=== PATIENT | female | born 1950 | race Caucasian/White ===

== ENCOUNTER 2017-10-10 13:02 | Outpatient (CLI) | payer MEDICARE | END 2017-10-10 13:03 | disposition home or self-care (01) | LOC: BICMAMMO 13:02 | PROVIDERS: ATTEND Internal Medicine | DX: Z12.31 Encounter for screening mammogram for malignant neoplasm of breast (principal); Z80.3 Family history of malignant neoplasm of breast | CPT/HCPCS: 77063; 77067 ==

== ENCOUNTER 2017-11-05 15:58 | Outpatient (CLI) | payer MEDICARE | END 2017-11-05 15:59 | disposition home or self-care (01) | LOC: CTENTCT 15:58 | PROVIDERS: ATTEND Specialist | DX: J32.9 Chronic sinusitis, unspecified (principal) | CPT/HCPCS: 70486 ==

== ENCOUNTER 2017-11-13 09:32 | Day surgery (SDC) | payer MEDICARE ==
[2017-11-12 11:03] VITALS: BMI 25.8
[2017-11-13] MEDS ORDERED: Lidocaine 1% w/Epinephrine 1:200K 30 ML VIAL ONE (13:47)
[2017-11-13] MEDS ORDERED: Oxymetazoline HCl 0.05% ( 15 ML ) ONE ×2 (13:47→13:53)
[2017-11-13 13:48] LABS: Hemoglobin 14.5 g/dL (12.0-16.0)
[2017-11-13 14:08] LABS: Anion Gap 13 mmol/L (10-20); BUN (Urea Nitrogen) 17 mg/dL (9.8-20.1); Calc. Creatinine Clearance 78 mL/min (70-130); Calcium 9.8 mg/dL (7.8-10.44); Carbon Dioxide 24 mmol/L (23-31); Chloride 106 mmol/L (98-107); Estimated GFR-MDRD 69; Glucose 78 mg/dL (80-115); Potassium 3.7 mmol/L (3.5-5.1); Sodium 139 mmol/L (136-145)
[2017-11-13] MEDS ORDERED: Fentanyl 250 MCG/5 ML VIAL ONE (14:12)
[2017-11-13] MEDS ORDERED: methylPREDNISolone Acetate 40 mg/ml Vial ONE (14:13)
[2017-11-13] MEDS ORDERED: Fentanyl 100 MCG/2 ML VIAL ONE ×2 (16:40→16:53)
[2017-11-13] MEDS ORDERED: HYDROcodone/Acetaminophen 5/325 mg Tablet ONE (18:24)
--- NOTE | 2017-11-13 20:42 | OP ---
PREOPERATIVE DIAGNOSES: 1. Nasal polyposis. 2. Chronic sinusitis. 3. Reactive airways disease. 4. Hypertrophic inferior turbinates. POSTOPERATIVE DIAGNOSES: 1. Nasal polyposis. 2. Chronic sinusitis. 3. Reactive airways disease. 4. Hypertrophic inferior turbinates. PROCEDURES PERFORMED: 1. Stereotactic sinus image guidance. 2. Bilateral nasal endoscopy with frontal sinusotomy with removal of tissue. 3. Bilateral nasal endoscopy with total ethmoidectomy. 4. Bilateral nasal endoscopy with sphenoidotomy. 5. Bilateral nasal endoscopy with maxillary antrostomy. 6. Bilateral nasal endoscopy with submucosal resection inferior turbinates. FINDINGS: The patient had extensive hyperostotic bone with polyps everywhere and purulence encounter ed in the frontal sinus and sphenoid sinus. The previous maxillary sinus antrostomies were connected with the natural os to create one single unit bilaterally to address the recirculation phenomena. DESCRIPTION OF PROCEDURE: After consent was obtained, the patient was identified, brought to the ope rating room, and placed on the operating room table in the supine position. Consent was obtained, no tifying the patient of the possibility of additional infections, bleeding, brain injury, and eye/orbi marlys injury. The patient was placed on the operating room table, and general endotracheal anesthesia and intravenous access was obtained. The patient was then positioned, prepped and draped [facility]. Nasal preparation included trimming nasal vestibular hairs and spraying in topic al Afrin. We then placed Afrin topical solution on nasal pledgets and strategically located them int ranasally. The perinasal mucosa was injected with 1% lidocaine with 1:100,000 epinephrine in the sub mucoperichondrial plane of the septum, lateral nasal wall, and anterior to the uncinate. The patient was then prepped and draped in a sterile fashion and positioned for endoscopic sinus surgery. With the 0-degree endoscope, the patient underwent systematic nasal endoscopy. There were no suspici ous internasal masses or lesions identified. We then focused our attention to the osteomeatal comple x region under the middle turbinate. The uncinate was then identified and the extent of the uncinate was appreciated by out-fracturing the uncinate with the ball-tip probe. We then used the sickle blade to disarticulate the uncinate from the lateral nasal wall. This was then removed with straight biting and upbiting punches with the remaining shrouds of mucosa and bony septum removed with the micro-debr ider. The natural os of the maxillary sinus was then identified and enlarged with the maxillary punc hes and back biting forceps. The anterior face of the ethmoid bulla was entered and with the micro-debrider, dissection continued posteriorly to the ground lamella. The limits of dissection inc luded the insertion of the middle turbinate, medial orbital wall, and base of skull. We similarly id entified the frontal recess and removed shrouds of bone and debris in that region to obtain patency i nto the agger nasi region and frontal recess. We then entered the ground lamella and its anteroinfer ior aspect and proceeded posteriorly, opening the posterior ethmoid air-cell system. Again, the limi ts of dissection included the base of skull and medial orbital wall. The anterior face of the sphenoid was identified and entered in its extreme anteroinferior aspect. A sphenoid punch was then used to enlarge the sphenoidotomy and no injury to the optic nerve or graduate internship al carotid artery occurred. The inferior turbinates were visualized under endoscopic visualization and outfractured with the elev ator. The inferolateral edge of the inferior turbinate was then cauterized along its length with the suction cautery without difficulty. The inferior turbinates were visualized with a 0-degree endoscope and outfractured with a Addy eleva tor. The inferior medial aspect was cauterized with the electrocautery. Hemostasis was obtained . After adequate airway was established, we turned our attention to the contralateral side and used a s imilar procedure. Again, a Alber elevator was used to outfracture inferior turbinates under endoscop ic visualization. With a suction cautery, the free inferior medial aspect was cauterized under direc t visualization along the length of the inferior turbinate. After local anesthesia was infiltrated into the submucoperichondrial plane, a standard Trever incisi on was made with a #15 blade down to the level of the septal cartilage. The caudal elevator was used to elevate the mucoperichondrium from the underlying cartilage. We then proceeded beyond the bony c artilaginous junction and elevated the bony periosteum as well. Great attention was paid to the spur to prevent rent formation in the septal flap. A transcartilaginous incision was then made, while pre serving an adequate dorsal and caudal cartilaginous strut for tip support. The deformed cartilage wa s removed and disarticulated from the bony cartilaginous junction and maxillary crest. This was plac ed in saline and would later be crushed and returned to the mucoperichondrial envelope. We then elev ated the contralateral periosteum from the bony cartilaginous region and removed the deformed portion s of the bone and bony spurs. The cartilage was then crushed and placed back into the mucoperichondr ial envelope and the mucosa was re-approximated with a quilting stitch composed of rapidly absorbent gut suture. The [place] incision was also closed with interrupted gut suture. At the completion of the case, Mercado splints were placed and suture secured to the caudal septum. At this point, we then turned our attention to the contralateral side and proceeded with endoscopic s inus surgery. At the completion of the case, Rice keel splints were placed in the ethmoid cavities after the ethmoi dectomy. There were no complications. The patient tolerated the procedure well and was discharged t o the recovery room in stable condition prior to return to the preoperative Day Stay with [facility]. Prescriptions for pain medication and antibiotics were provided. The patient received intramuscular Depo-Medrol during the case.
--- NOTE | 2017-11-15 08:02 | EKG ---
Test Reason : PREOP Blood Pressure : / mmHG Vent. Rate : 064 BPM Atrial Rate : 064 BPM P-R Int : 180 ms QRS Dur : 088 ms QT Int : 434 ms P-R-T Axes : 039 008 052 degrees QTc Int : 447 ms Normal sinus rhythm Normal ECG No previous ECGs available Confirmed by DR. Nataliya DIAZ ([id number]) on 11/15/2017 8:02:21 AM Referred By: TURNER Confirmed By:DR. Nataliya DIAZ
== END 2017-11-13 19:28 | disposition home or self-care (01) ==
LOC: SDC 09:32
PROVIDERS: ATTEND Specialist
PROC: 8E09XBZ Computer Assisted Procedure of Head and Neck Region (ICD-10-PCS; principal; 2017-11-13)
PROC: 099R8ZZ Drainage of Left Maxillary Sinus, Via Natural or Artificial Opening Endoscopic (ICD-10-PCS; 2017-11-13)
PROC: 099W8ZZ Drainage of Right Sphenoid Sinus, Via Natural or Artificial Opening Endoscopic (ICD-10-PCS; 2017-11-13)
PROC: 099X8ZZ Drainage of Left Sphenoid Sinus, Via Natural or Artificial Opening Endoscopic (ICD-10-PCS; 2017-11-13)
PROC: 099Q8ZZ Drainage of Right Maxillary Sinus, Via Natural or Artificial Opening Endoscopic (ICD-10-PCS; 2017-11-13)
PROC: 09BT8ZZ Excision of Left Frontal Sinus, Via Natural or Artificial Opening Endoscopic (ICD-10-PCS; 2017-11-13)
PROC: 09BS8ZZ Excision of Right Frontal Sinus, Via Natural or Artificial Opening Endoscopic (ICD-10-PCS; 2017-11-13)
PROC: 09TL8ZZ Resection of Nasal Turbinate, Via Natural or Artificial Opening Endoscopic (ICD-10-PCS; 2017-11-13)
PROC: 09TV8ZZ Resection of Left Ethmoid Sinus, Via Natural or Artificial Opening Endoscopic (ICD-10-PCS; 2017-11-13)
PROC: 09TU8ZZ Resection of Right Ethmoid Sinus, Via Natural or Artificial Opening Endoscopic (ICD-10-PCS; 2017-11-13)
DX: J33.9 Nasal polyp, unspecified (principal); J32.9 Chronic sinusitis, unspecified; J34.3 Hypertrophy of nasal turbinates; J45.909 Unspecified asthma, uncomplicated; K21.9 Gastro-esophageal reflux disease without esophagitis; M06.9 Rheumatoid arthritis, unspecified; F41.9 Anxiety disorder, unspecified; Z79.899 Other long term (current) drug therapy; Z79.52 Long term (current) use of systemic steroids; Z88.0 Allergy status to penicillin; Z88.1 Allergy status to other antibiotic agents; Z88.8 Allergy status to other drugs, medicaments and biological substances
CPT/HCPCS: 36415; 80048; 85014; 85018; 93005; 93010; 96374; J1030; J3010

== ENCOUNTER 2018-07-06 09:58 | Outpatient (CLI) | payer MEDICARE ==
--- NOTE | 2018-07-06 12:07 | RAD ---
CHEST PA AND LATERAL: History: 68-year-old female with history of cough and congestion for three weeks. FINDINGS: Heart size is within normal limits. The lungs are clear. No pneumonia, edema, or pleural effusion. IMPRESSION: No acute intrathoracic disease. No evidence for pneumonia. Atherosclerosis of the aorta. POS: [facility]
== END 2018-07-06 09:59 | disposition home or self-care (01) ==
LOC: BICRAD 09:58
PROVIDERS: ATTEND Internal Medicine
DX: R05 Cough (principal); I70.0 Atherosclerosis of aorta
CPT/HCPCS: 71046

== ENCOUNTER 2018-12-14 10:10 | Outpatient (CLI) | payer MEDICARE ==
--- NOTE | 2018-12-14 11:20 | MRI ---
[facility] lumbar spine noncontrast: DATE: 12/14/2018 HISTORY: Left lumbar radiculopathy COMPARISON: None FINDINGS: Bilateral transpedicular screws at L4, L5 and S1. Associated metallic susceptibility artifact. 4.2 mm of retrolisthesis of L3 upon L4 and 5.1 mm anterolisthesis of L5 upon S1. Fusion of the L5-S1 disc space. Type II Modic changes at L5-S1.. No significant STIR hyperintensity to suggest vertebral body edema or ligamentous injury Symmetric signal intensity of the paraspinal muscles T2 hyperintensities in the left renal cortex, right hepatic lobe and right renal pelvis likely repres enting cystic lesions. Conus medullaris terminates at the mid L1 level T12-L1:Adequate disc hydration. No significant central canal stenosis or neural foraminal narrowing L1-2:Adequate disc hydration. No significant central canal stenosis or foraminal narrowing L2-3:Adequate disc hydration. No significant central canal stenosis or foraminal narrowing L3-4:Mild loss of disc space height. Generalized disc bulge without significant central canal stenosi s. Minimal encroachment upon both subarticular zones with partial obscuration of bilateral traversing L4 nerve roots. Moderate right and mild left foraminal narrowing. L4-5:Posterior laminectomy defect. No significant central canal stenosis. Neural foramina are patent L5-S1:Posterior laminectomy defect. No significant central canal stenosis. Neural foramina are patent . Perineural sleeve cyst along the left S1 nerve root. Additional perineural sleeve cyst on the right S 2 nerve root. IMPRESSION: 1. Lumbar fusion from L4 through S1. Limited evaluation due to lack of intravenous contrast administ ration. 2. Mass effect upon bilateral subarticular zones at L3-L4 with partial obscuration of bilateral jannie ersing L4 nerve roots. Moderate right and mild left foraminal narrowing at L3-L4.
== END 2018-12-14 10:11 | disposition home or self-care (01) ==
LOC: TBSIIMAG 10:10
PROVIDERS: ATTEND Neurological Surgery
DX: M54.16 Radiculopathy, lumbar region (principal); M48.061 Spinal stenosis, lumbar region without neurogenic claudication; Z98.1 Arthrodesis status
CPT/HCPCS: 72148

== ENCOUNTER 2019-01-19 10:18 | Outpatient (CLI) | payer MEDICARE ==
--- NOTE | 2019-01-19 12:43 | MRI ---
MR CERVICAL SPINE WITHOUT CONTRAST INDICATION: Chronic neck pain with bilateral hand cramps for many years TECHNIQUE: Multiplanar multisequence MR images were obtained of the cervical spine without contrast. COMPARISON: Prior MR the cervical spine dated November 30, 2013 FINDINGS: Posterior fossa: Within normal limits. Bone marrow signal intensity: Normal Spinal alignment: There is reversal the normal cervical lordosis which is stable. Craniocervical junction: Normal appearing. Prevertebral and perivertebral soft tissues: The prevertebral soft tissues appear within normal limit s. There is a small amount of mucosal thickening within the sphenoid sinus. Vertebral levels: C2-C3: There is a stable mild broad-based disc bulge at C2-C3. There is stable moderate to severe lef t and moderate right facet joint degenerative change. No appreciable central canal or neural foraminal narrowing is evident. C3-4: The severe left and moderate right facet joint degenerative changes stable. There is worsening right-sided uncovertebral hypertrophy inducing new mild right neural foraminal narrowing. There are stable mild left neural foraminal narrowing. C4-5: There is a worsening broad-based disc bulge at C4-5 causing mild ventral contact to the spinal cord. There is facet joint degenerative change and uncovertebral hypertrophy, greater on the right introducing stable severe right and mild left neural foraminal narrowing. C5-C6: There is a stable broad-based disc bulge with uncovertebral hypertrophy and facet joint degene rative change inducing stable moderate to severe bilateral neural foraminal narrowing. C6-C7:, There is a stable broad-based disc bulge with uncovertebral hypertrophy and facet joint degen erative changes inducing stable moderate right neural foraminal narrowing with mild central canal narrowing. C7-T1: There is been some interval resorption of the large right paracentral and foraminal disc protr usion. There is some residual mild/moderate right sided neural foraminal narrowing. IMPRESSION: 1. Worsening moderate multilevel spondylosis of the cervical spine. 2. There is worsening broad-based disc bulge at C4-5 causing mild ventral contact of the spinal cord without cord signal abnormality. 3. Some interval resorption of a large right paracentral and foraminal disc protrusion at C7-T1. Ther e is improvement in the right-sided neural foraminal narrowing. [id number] right-sided neural foraminal narrowing remains. 4. New mild right neural foraminal narrowing at C3-4. 5. Stable prominent multilevel neural foraminal narrowing as detailed above.
== END 2019-01-19 10:19 | disposition home or self-care (01) ==
LOC: SCSMRI 10:18
PROVIDERS: ATTEND Neurological Surgery
DX: M47.22 Other spondylosis with radiculopathy, cervical region (principal); M50.121 Cervical disc disorder at C4-C5 level with radiculopathy; S13.181A Dislocation of C7/T1 cervical vertebrae, initial encounter; M48.02 Spinal stenosis, cervical region; M48.03 Spinal stenosis, cervicothoracic region
CPT/HCPCS: 72141

== ENCOUNTER 2019-08-09 22:44 | Emergency (ER) | payer MEDICARE ==
[2019-08-09] MEDS ORDERED: Ondansetron ODT 4 MG TAB ONE (23:08)
[2019-08-09] MEDS ORDERED: Ondansetron PF 4 MG/2 ML Vial ONE (23:16)
[2019-08-09 23:38] LABS: ALT (SGPT) 28 U/L (8-55); AST (SGOT) 24 U/L (5-34); Albumin 4.7 g/dL (3.4-4.8); Alkaline Phosphatase 97 U/L (40-110); Anion Gap 17 mmol/L (10-20); BUN (Urea Nitrogen) 19 mg/dL (9.8-20.1); Bilirubin, Total 0.5 mg/dL (0.2-1.2); Calc. Creatinine Clearance 0 mL/min (70-130); Calcium 9.7 mg/dL (7.8-10.44); Carbon Dioxide 21 mmol/L (23-31); Chloride 106 mmol/L (98-107); Estimated GFR-MDRD 55; Glucose 148 mg/dL (80-115); Lipase 40 U/L (8-78); Magnesium 1.9 mg/dL (1.6-2.6); Potassium 3.9 mmol/L (3.5-5.1); Protein, Total 7.7 g/dL (6.0-8.3); Sodium 140 mmol/L (136-145)
[2019-08-10 00:07] LABS: Band 9 % (5-11); Eosinophils 2 % (0-10); Hemoglobin 14.2 g/dL (12.0-16.0); Lymphocytes 10 % (21-51); MDiff Complete? YES; Mean Corpuscular HGB CONC 33.3 g/dL (32.0-36.0); Mean Corpuscular Hemoglobin 28.3 pg (27.0-31.0); Mean Platelet Volume 8.9 fL (7.4-10.4); Monocytes 3 % (0-10); Neutrophil 76 % (42-75); Platelet Clumps SLIGHT; Platelet Count 170 thou/uL (130-400); Platelet Morphology Comment Appears Adequate; Red Blood Cell (RBC) Count 5.02 mill/uL (4.20-5.40); White Blood Cell (WBC) Count 15.2 thou/uL (4.8-10.8)
[2019-08-10] MEDS ORDERED: Ondansetron PF 4 MG/2 ML Vial ONE (00:39)
[2019-08-10 01:57] LABS: Bilirubin Negative (Negative); Blood, Urine Negative (Negative); Clarity Clear (Clear); Glucose, Urine (Dipstick) Normal (Negative); Leukocyte 25 Leu/uL (Negative); Nitrite Negative (Negative); Protein, Urine (Dipstick) Negative (Neg-Trace); RBC/HPF 0-3 HPF (0-3); Squamous Epithelial 0-3 HPF (0-3); Urobilinogen Normal mg/dL (Less than 2)
[2019-08-10 01:58] LABS: Bacteria/HPF 1+ HPF (None Seen)
[2019-08-10] MEDS ORDERED: Promethazine HCl 25 MG/ML VIAL ONE (02:19)
== END 2019-08-10 03:48 | disposition home or self-care (01) ==
LOC: ERS 22:44
DX: R11.2 Nausea with vomiting, unspecified (principal); R19.7 Diarrhea, unspecified; J45.909 Unspecified asthma, uncomplicated
CPT/HCPCS: 80053; 81003; 81015; 83690; 83735; 84484; 85025; 93005; 96361; 96365; 96372; 96375; 96376; J0500; J2405; J2550; Q0162

== ENCOUNTER 2020-04-11 10:03 | Outpatient (CLI) | payer MEDICARE ==
--- NOTE | 2020-04-11 10:28 | RAD ---
LUMBAR SPINE: Lateral neutral, flexion, and extension radiographs of lumbar spine obtained. Date: 04/11/2020 HISTORY: Intermittent back pain, prior back surgery. FINDINGS: Bilateral L4, L5, and S1 pedicle screws are present with vertically oriented interlocking rods. There is approximately 1.0-1.5 cm of anterolisthesis at the lumbosacral junction which is stable on the ne utral, flexion, and extension views. There is disc space narrowing with degenerative end plate change at L3-4. No acute fracture is noted. There is multilevel lower lumbar spine facet hypertrophic marquez e. IMPRESSION: Postoperative and degenerative change as detailed above. POS: [facility]
== END 2020-04-11 10:04 | disposition home or self-care (01) ==
LOC: SCSRAD 10:03
PROVIDERS: ATTEND Neurological Surgery
DX: M43.16 Spondylolisthesis, lumbar region (principal); M47.816 Spondylosis without myelopathy or radiculopathy, lumbar region; Z98.890 Other specified postprocedural states
CPT/HCPCS: 72100

== ENCOUNTER 2020-05-09 11:13 | Inpatient (IN) | payer MEDICARE, OTHER ==
[~2020-05-09 11:13] MED LIST: Iopamidol-370 76% 500 ML 1 ML ONE
[2020-05-09] MEDS ORDERED: Ondansetron PF 4 MG/2 ML Vial ONE (11:51)
[2020-05-09] MEDS ORDERED: Morphine 4 MG/ML VIAL ONE ×2 (11:51→15:47)
[2020-05-09 12:02] LABS: #Basophils 0.1 thou/uL (0.0-0.2); #Eosinphils 0.1 thou/uL (0.0-0.7); #Lymphocytes 1.3 thou/uL (1.20-3.40); #Monocytes 0.2 thou/uL (0.11-0.59); #Neutrophils 12.7 thou/uL (1.40-6.50); %Basophils 0.4 % (0.0-1.0); %Eosinophils 0.5 % (0.0-10.0); %Lymphocytes 8.9 % (21.0-51.0); %Monocytes 1.4 % (0.0-10.0); %Neutrophils 88.8 % (42.0-75.0); Hemoglobin 12.4 g/dL (12.0-16.0); Mean Corpuscular HGB CONC 32.4 g/dL (32.0-36.0); Mean Corpuscular Hemoglobin 29.2 pg (27.0-31.0); Mean Corpuscular Volume 90.2 fL (78.0-98.0); Mean Platelet Volume 7.2 fL (7.4-10.4); Platelet Count 337 thou/uL (130-400); RBC Distribution Width 12.3 % (11.5-14.5); Red Blood Cell (RBC) Count 4.22 mill/uL (4.20-5.40); White Blood Cell (WBC) Count 14.3 thou/uL (4.8-10.8)
[2020-05-09] MEDS ORDERED: Cefepime 2 GM VIAL ONE (12:17)
[2020-05-09 12:23] LABS: ALT (SGPT) 23 U/L (8-55); AST (SGOT) 19 U/L (5-34); Albumin 4.3 g/dL (3.4-4.8); Alkaline Phosphatase 72 U/L (40-110); Anion Gap 13 mmol/L (10-20); BUN (Urea Nitrogen) 22 mg/dL (9.8-20.1); Bilirubin, Total 0.4 mg/dL (0.2-1.2); Calc. Creatinine Clearance 0 mL/min (70-130); Calcium 9.3 mg/dL (7.8-10.44); Carbon Dioxide 26 mmol/L (23-31); Chloride 104 mmol/L (98-107); Estimated GFR-MDRD 45; Globulin 2.6 g/dL (2.4-3.5); Glucose 126 mg/dL (80-115); Potassium 3.9 mmol/L (3.5-5.1); Protein, Total 6.9 g/dL (6.0-8.3); Sodium 139 mmol/L (136-145)
--- NOTE | 2020-05-09 13:01 | CT ---
EXAM: CT ABDOMEN AND PELVIS HISTORY: Left lower quadrant pain COMPARISON: 05/23/2018 Procedure: Multiple contiguous axial images were obtained and a CT of the abdomen and pelvis with IV contrast. C oronal reformats were performed. FINDINGS: Lower Chest: No acute abnormality Vessels: Normal caliber aorta. No periaortic fat stranding Heart: Normal heart size. No significant pericardial fluid Abdomen: Portal vein:Patent Gallbladder: No calcified gallstones. Normal caliber wall. Liver: Stable hypodensities in the right hepatic lobe. No enhancing hepatic masses Pancreas: within normal limits. Spleen: within normal limits. Adrenals: within normal limits. Kidneys: Symmetric enhancement. No obstructive uropathy. Stable well-circumscribed hypodensity in the mid left renal cortex, too small to characterize measuring 0.6 cm. Peritoneum: No free air or significant fluid collection. Trace amount of fluid in both paracolic gutt ers. Bowel: Limited evaluation by the lack of oral contrast. Normal caliber small bowel loops. Normal ileo cecal junction. Normal caliber appendix. There is circumferential bowel wall thickening with pericolonic fat stranding involving the mid to distal descending colon and proximal sigmoid colon. Th ere are diverticula present in the residual sigmoid colon. No evidence of active inflammatory change. Anastomosis in the rectosigmoid region is identified. Mesentery and Retroperitoneum: No enlarged mesenteric or retroperitoneal lymph nodes. Abdominal Wall: Small umbilical hernia containing mesenteric fat Pelvis: Reproductive Organs: Reproductive organs are unremarkable. Pelvis: Surgically absent uterus. Bladder: within normal limits. Bones: Grade 1 anterolisthesis of L5 upon S1 with associated bilateral spondylolysis. Lumbar fusion f rom L4 through S1. Stable fusion of the lumbosacral junction. IMPRESSION: 1. Long segment mucosal thickening and pericolonic fat stranding involving the left hemicolon. An inf ectious or inflammatory or ischemic process is favored. 2. Minimal diverticulosis, without definite diverticulitis. There are 2 small diverticula present moreno ng the distal left hemicolon. However, the extent of inflammatory disease favors the a forementioned differential, rather than diverticulitis.
[2020-05-09] MEDS ORDERED: metroNIDAZOLE 500 MG/100 ML BAG ONE (13:08)
--- NOTE | 2020-05-09 16:07 | PDOC.HHP ---
Hospitalist HPI - History of Present Illness Abdominal pain History of Present Illness: Ms. Marcano is a 69-year-old female with a past medical history of eosinophilic asthma, hypertension, tachycardia - status post ablation 2 years ago, diverticulitis - status post sigmoid colon resection 9 years ago who presents with acute left lower quadrant abdominal pain. Patient reports that over the past week she has had mild abdominal pain and developed nonbloody diarrhea the evening prior to admission. This morning she was getting her hair done, felt worsening left lower quadrant pain and felt as though she was about to pass out. She then presented to the ER. Patient denies nausea, vomiting. Denies fever but reports chills over the past few days. Denies sick contacts, denies any recurrent bouts of diverticulitis since her resection. Denies chest pain, shortness of breath, palpitations. Of note patient had a recent left radial nerve entrapment surgery on April 25 with sutures still in place patient reports that she was post to remove the sutures at an appointment on 05/11/2020. She also reports that she was on bactrim post-op. ED Course: In the ED patient's initial vital signs were BP 82/40, HR 72, RR 18, 97.9, 100% on room air. Work-up included EKG which showed normal sinus rhythm with no ischemic changes troponin of 0.012, elevated white blood cell count to 14.3, stable H&H of 12.4/38.1, BUN/CR ratio of 22/1.18. Lactic acid elevated to 3.0. CT of the abdomen revealed long segment mucosal thickening and pericolonic fat stranding involving the left hemicolon with an inflammatory or ischemic process favored CT scan also showed diverticulosis without definite diverticulitis. Patient was started on Flagyl and cefepime IV and received IV fluids. Hospitalist ROS - Review of Systems Constitutional: reports: chills. denies: fever, sweats, weakness, malaise, other Eyes: denies: vision change ENT: denies: ear pain, nose congestion, throat pain Respiratory: denies: cough, dry, shortness of breath, hemoptysis, SOB with excertion, pleuritic pain, sputum, wheezing, other Cardiovascular: denies: chest pain, palpitations, orthopnea, paroxysmal noc. dyspnea, edema, light headedness, other Gastrointestinal: reports: abdominal pain, diarrhea. denies: nausea, vomiting, constipation, melena, hematochezia, other Genitourinary: denies: dysuria, frequency, incontinence, hematuria, retention, other Musculoskeletal: denies: neck pain, shoulder pain, arm pain, back pain, hand pain, leg pain, foot pain, other Skin: denies: rash, lesions, blanca Neurological: denies: weakness, numbness - Medication Medications: Active Medications Generic Name Dose Route Start Last Admin Trade Name Freq PRN Reason Stop Dose Admin Acetaminophen 650 mg 05/09/20 16:29 Tylenol PO Q4H PRN Headache/Fever/Mild Pain (1-3) Albuterol/Ipratropium 3 ml 05/09/20 18:30 05/10/20 07:29 Duoneb NEB 3 ml [id number] ABBE Administration Enoxaparin Sodium 40 mg 05/10/20 09:00 Lovenox SC 0900 ABBE Sodium Chloride 1,000 mls @ 100 mls/hr 05/09/20 16:30 05/10/20 05:06 Normal Saline 0.9% IV 1,000 mls .Q10H ABBE Administration Cefepime HCl 2 gm/ Sodium 100 mls @ 200 mls/hr 05/09/20 23:59 05/10/20 00:00 Chloride IVPB 100 mls 1200,2359 ABBE Administration Metronidazole 500 mg/ Device 100 mls @ 100 mls/hr 05/09/20 22:00 05/10/20 05: 04 IVPB 100 mls Q8HR ABBE Administration Mometasone Furoate/Formoterol Fumar 1 puff 05/09/20 18:30 05/10/20 07:29 Dulera 200 Mcg/5 Mcg Inhaler INH 1 puff BID-RT ABBE Administration Ondansetron HCl 4 mg 05/09/20 17:00 Zofran IVP Q6H PRN Nausea/Vomiting Sodium Chloride 10 ml 05/09/20 16:29 Flush - Normal Saline IVF PRN PRN Saline Flush Hospitalist History - Past Medical History Cardiac: reports: Other (Status post ablation 2 years ago, SVT) Pulmonary: reports: asthma, hypertension 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: Peripheral 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) Gastrointestinal: reports: Diverticulosis (Diverticulitis status post colonic resection) Heme/Onc: reports: no pertinent history Hepatobiliary: reports: no pertinent history Psych: reports: Anxiety Musculoskeletal: reports: no pertinent history Rheumatologic: reports: no pertinent history Infectious Disease: reports: no pertinent history ENT: reports: no pertinent history Renal/: reports: no pertinent history Endocrine: reports: no pertinent history - Past Surgical History Other Surgical History: Sigmoid colon resection 2010, left radial nerve surgical release on April 25, cardiac ablation for question SVT performed 2 years ago - Family History Family History: reports: cancer (Father with lung cancer daughter with breast cancer Sister with breast cancer) - Social History Smoking Status: Never smoker Alcohol: reports: Occassional (Glass of wine 1-3 times per week) Drugs: reports: none Living Situation: With Family Activity level: independent ambulation - Exam General Appearance: NAD, awake alert Eye: PERRL, anicteric sclera ENT: normocephalic atraumatic, no oropharyngeal lesions, moist mucosa Neck: supple, symmetric, no JVD, no thyromegaly, no lymphadenopathy, no carotid bruit Heart: RRR, no murmur, no gallops, no rubs, normal peripheral pulses Respiratory: CTAB, no wheezes, no rales, no ronchi, normal chest expansion, no tachypnea, normal percussion Gastrointestinal: soft, non-distended, no palpable masses, no hepatomegaly, no splenomegaly, no bruit, tender to palpation, diminished bowl sounds Extremities: no cyanosis, no clubbing, no edema Extremities - other findings: Sutures and dressing in place to left elbow Skin: normal turgor, no lesions, no rashes Neurological: cranial nerve grossly intact, normal sensation to touch, no weakness, no focal deficits, no new deficit Musculoskeletal: normal tone, normal strength, no muscle wasting Psychiatric: normal affect, normal behavior, A&O x 3 Hospitalist Results - Labs Result Diagrams: 05/10/20 05:25 05/10/20 05:25 Lab results: WBC 14.3 thou/uL (4.8-10.8) H 05/09/20 11:40 Hgb 12.4 g/dL (12.0-16.0) 05/09/20 11:40 Hct 38.1 % (36.0-47.0) 05/09/20 11:40 MCV 90.2 fL (78.0-98.0) 05/09/20 11:40 Plt Count 337 thou/uL (130-400) 05/09/20 11:40 Neutrophils % 88.8 % (42.0-75.0) H 05/09/20 11:40 Sodium 139 mmol/L (136-145) 05/09/20 11:40 Potassium 3.9 mmol/L (3.5-5.1) 05/09/20 11:40 Chloride 104 mmol/L (98-107) 05/09/20 11:40 Carbon Dioxide 26 mmol/L (23-31) 05/09/20 11:40 BUN 22 mg/dL (9.8-20.1) H 05/09/20 11:40 Creatinine 1.18 mg/dL (0.6-1.1) H 05/09/20 11:40 Glucose 126 mg/dL (80-115) H 05/09/20 11:40 Lactic Acid 3.0 mmol/L (0.5-2.2) H 05/09/20 14:02 Calcium 9.3 mg/dL (7.8-10.44) 05/09/20 11:40 Total Bilirubin 0.4 mg/dL (0.2-1.2) 05/09/20 11:40 AST 19 U/L (5-34) 05/09/20 11:40 ALT 23 U/L (8-55) 05/09/20 11:40 Alkaline Phosphatase 72 U/L (40-110) 05/09/20 11:40 Troponin I 0.012 ng/mL (< 0.028) 05/09/20 11:40 Serum Total Protein 6.9 g/dL (6.0-8.3) 05/09/20 11:40 Albumin 4.3 g/dL (3.4-4.8) 05/09/20 11:40 - EKG Interpretation EKG: Normal sinus rhythm no ischemic changes Hospitalist H&P A/P - Problem (1) Colitis Code(s): K52.9 - NONINFECTIVE GASTROENTERITIS AND COLITIS, UNSPECIFIED Status : Acute (2) Acute left lower quadrant pain Code(s): R10.32 - LEFT LOWER QUADRANT PAIN Status: Acute (3) Eosinophilic asthma Code(s): J82 - PULMONARY EOSINOPHILIA, NOT ELSEWHERE CLASSIFIED Status: Acute (4) Hypertension Code(s): I10 - ESSENTIAL (PRIMARY) HYPERTENSION Status: Acute (5) S/P decompression of ulnar nerve at elbow Code(s): Z98.890 - OTHER SPECIFIED POSTPROCEDURAL STATES Status: Acute - Plan Plan: Assessment: 69-year-old female with past medical history of diverticulitis status post colonic resection in 2010, hypertension, eosinophilic asthma, ulnar nerve entrapment, presented to the ED on 05/09/2020 with acute lower quadrant abdominal pain found to have evidence of colitis on CT scan. Colitis: Presented with left lower quadrant abdominal pain associated with diarrhea found to have elevated white blood cell count to 14.3, elevated lactic acid 3.0 , and CT abdomen pelvis showing long segment mucosal thickening and pericolonic fat stranding of the left hemicolon as well as minimal diverticulosis without definite diverticulitis. Patient was started on Flagyl and cefepime IV in the ED as well as received IV fluids. Plan: -Continue IV Flagyl, cefepime -Continue IV fluids -Clear liquid diet -Continue to trend CBC, BMP, lactic acid Please note patient has multiple allergies including anaphylactic reaction to penicillins, rash reactions to ciprofloxacin, levofloxacin, etc. BRIANNA: Patient with mild BRIANNA with BUN/CR ratio of 22/1.18. Likely prerenal secondary to dehydration we will give IV fluids and monitor. Plan: -Trend BMP -IV fluids Eosinophilic Asthma: History of eosinophilic asthma on standing Symbicort Xopenex, and Nucala which she receives as a monthly injection. Plan: -Continue Symbicort twice daily -Duo nebs as needed Hypertension: Continue home losartan as blood pressure allows DVT prophylaxis with Lovenox All imaging reviewed by me Case discussed with attending physician Dr. De Anda.
[2020-05-09] MEDS: Sodium Chloride 0.9% 1,000 ML IV SCH (17:47)
[2020-05-09 18:33] LABS: Lactic Acid 3.2 mmol/L (0.5-2.2)
[2020-05-09] MEDS: Mometasone 200 MCG/Formoterol 5 MCG 120 PUFF INHALER INH SCH (18:35)
[2020-05-09] MEDS ORDERED: Morphine 2 MG/ML VIAL SLOW IVP SCH (20:30)
--- NOTE | 2020-05-09 20:53 | RAD ---
RADIOGRAPH CHEST 1 VIEW: DATE: 05/09/2020 HISTORY: 69-year-old female with chest pain. FINDINGS: The thoracic aorta is tortuous and ectatic. There is no evidence of air space density, pneumothorax, or pulmonary edema. The lateral costophrenic angles are sharp. There is no cardiomegaly. IMPRESSION: 1. No acute pulmonary findings. 2. Ectasia of thoracic aorta. campos [] POS: [facility]
[2020-05-09] MEDS: metroNIDAZOLE 500 MG in Premix Bag 1 BAG IVPB SCH (21:07)
[2020-05-10] MEDS ORDERED: Morphine 2 MG/ML VIAL SLOW IVP SCH (00:30)
[2020-05-10] MEDS: metroNIDAZOLE 500 MG in Premix Bag 1 BAG IVPB SCH ×3 (05:04→21:53)
[2020-05-10] MEDS: Sodium Chloride 0.9% 1,000 ML IV SCH ×2 (05:06→17:58)
[2020-05-10 05:57] LABS: #Basophils 0.1 thou/uL (0.0-0.2); #Lymphocytes 1.9 thou/uL (1.20-3.40); #Monocytes 0.6 thou/uL (0.11-0.59); #Neutrophils 11.9 thou/uL (1.40-6.50); %Basophils 0.4 % (0.0-1.0); %Eosinophils 0.2 % (0.0-10.0); %Monocytes 4.4 % (0.0-10.0); Hemoglobin 11.2 g/dL (12.0-16.0); Mean Corpuscular HGB CONC 31.9 g/dL (32.0-36.0); Mean Corpuscular Hemoglobin 29.1 pg (27.0-31.0); Mean Platelet Volume 7.5 fL (7.4-10.4); Platelet Count 312 thou/uL (130-400); RBC Distribution Width 12.6 % (11.5-14.5); Red Blood Cell (RBC) Count 3.86 mill/uL (4.20-5.40); White Blood Cell (WBC) Count 14.5 thou/uL (4.8-10.8)
[2020-05-10] MEDS ORDERED: Morphine 4 MG/ML VIAL SLOW IVP SCH (06:00)
[2020-05-10] MEDS ORDERED: Sodium Chloride 0.9% 250 ML IV SCH (06:00)
[2020-05-10 06:21] LABS: Anion Gap 14 mmol/L (10-20); BUN (Urea Nitrogen) 12 mg/dL (9.8-20.1); Calc. Creatinine Clearance 71 mL/min (70-130); Calcium 7.9 mg/dL (7.8-10.44); Carbon Dioxide 19 mmol/L (23-31); Chloride 108 mmol/L (98-107); Estimated GFR-MDRD 57; Glucose 105 mg/dL (80-115); Potassium 3.6 mmol/L (3.5-5.1); Sodium 137 mmol/L (136-145)
[2020-05-10] MEDS: Mometasone 200 MCG/Formoterol 5 MCG 120 PUFF INHALER INH SCH ×2 (07:29→18:28)
[2020-05-10] MEDS: Morphine 4 MG/ML VIAL SLOW IVP PRN ×2 (09:15→17:15)
[2020-05-10] MEDS: Enoxaparin Sodium 40 MG/0.4 ML SYRINGE SC SCH ×2 (09:16→09:17)
--- NOTE | 2020-05-10 10:46 | PDOC.HOSPP ---
- Subjective Encounter Date: 05/10/20 Encounter Time: 10:40 Subjective: f/u for L-sided colitis presumed infectious on Cefepime/Flagyl. States still with LLQ abd pain/cramping. No diarrhea or emesis. Receiving Morphine IV for pain control. - Objective Vital Signs & Weight: Vital Signs (12 hours) Temp Pulse Resp BP Pulse Ox 05/10/20 10:34 85 16 95 05/10/20 08:00 98.6 F 83 18 107/64 95 05/10/20 07:29 63 16 98 05/10/20 04:36 98.6 F 99 16 94/58 L 93 L 05/09/20 23:15 98.8 F 86 16 107/66 94 L Weight Weight 179 lb 14.285 oz I&O: 05/09/20 05/10/20 05/11/20 06:59 06:59 06:59 Intake Total 1700 Balance 1700 Result Diagrams: 05/10/20 05:25 05/10/20 05:25 Additional Labs: Microbiology 05/10/20 05:15 Stool C. difficile GDH Antigen & Toxins - Final Laboratory Tests 05/09/20 05/09/20 05/09/20 11:40 11:40 14:02 WBC 14.3 H Neutrophils % 88.8 H BUN 22 H Creatinine 1.18 H Lactic Acid 3.0 H Lipase 05/09/20 05/09/20 18:03 18:03 WBC Neutrophils % BUN Creatinine Lactic Acid 3.2 H Lipase 26 Hospitalist ROS - Medication Medications: Active Medications Generic Name Dose Route Start Last Admin Trade Name Freq PRN Reason Stop Dose Admin Albuterol/Ipratropium 3 ml 05/09/20 18:30 05/10/20 10:34 Duoneb NEB 3 ml [id number] ABBE Administration Enoxaparin Sodium 40 mg 05/10/20 09:00 05/10/20 09:17 Lovenox SC Not Given 0900 ABBE Sodium Chloride 1,000 mls @ 100 mls/hr 05/09/20 16:30 05/10/20 05:06 Normal Saline 0.9% IV 1,000 mls .Q10H ABBE Administration Cefepime HCl 2 gm/ Sodium 100 mls @ 200 mls/hr 05/09/20 23:59 05/10/20 00:00 Chloride IVPB 100 mls 1200,2359 ABBE Administration Metronidazole 500 mg/ Device 100 mls @ 100 mls/hr 05/09/20 22:00 05/10/20 05: 04 IVPB 100 mls Q8HR ABBE Administration Mometasone Furoate/Formoterol Fumar 1 puff 05/09/20 18:30 05/10/20 07:29 Dulera 200 Mcg/5 Mcg Inhaler INH 1 puff BID-RT ABBE Administration Morphine Sulfate 4 mg 05/10/20 08:31 05/10/20 09:15 Morphine SLOW IVP 4 mg Q4H PRN Administration Moderate to Severe Pain (6-10) - Exam General Appearance: NAD, awake alert Eye: PERRL, anicteric sclera ENT: normocephalic atraumatic, no oropharyngeal lesions Neck: supple, symmetric, no JVD, no thyromegaly, no lymphadenopathy Heart: RRR, no murmur, no gallops, no rubs, normal peripheral pulses Heart - other findings: S1, S2 Respiratory: CTAB, no wheezes, no rales, no ronchi, normal chest expansion, no tachypnea Gastrointestinal: soft, non-distended, normal bowel sounds, no palpable masses Gastrointestinal - other findings: mild TTP in LLQ Extremities: no cyanosis, no clubbing, no edema Skin: normal turgor, no lesions Neurological: cranial nerve grossly intact, no new deficit Musculoskeletal: normal tone, normal strength, no muscle wasting Psychiatric: normal affect, A&O x 3 Hosp A/P (1) Acute colitis Code(s): K52.9 - NONINFECTIVE GASTROENTERITIS AND COLITIS, UNSPECIFIED Status : Acute Plan: Presumed infectious, continue Cefepime/Flagyl, continue IV abx, IVF's (2) Acute left lower quadrant pain Code(s): R10.32 - LEFT LOWER QUADRANT PAIN Status: Acute Plan: Continue mgmt as outlined in #1, Morphine Sulfate IV PRN (3) BRIANNA (acute kidney injury) Code(s): N17.9 - ACUTE KIDNEY FAILURE, UNSPECIFIED Status: Acute Plan: Improved, continue IVF's, avoid nephrotoxic meds and limit contrast (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
[2020-05-10 11:59] VITALS: BMI 28.1
[2020-05-10] MEDS: Cefepime 2 GM in Sodium Chloride 0.9% 100 ML IVPB SCH ×2 (12:20)
[2020-05-10] MEDS: Ondansetron PF 4 MG/2 ML Vial IVP PRN (12:23)
[2020-05-10 12:30] LABS: SARS-CoV-2 MS2 Positive; SARS-CoV-2 N Gene Negative; SARS-CoV-2 S Gene Negative; SARS-CoV-2 by NAA Not Detected (NotDetected); SARS-CoV-2 orf1ab Negative
[2020-05-10] MEDS: Ketorolac Tromethamine 30 MG/ML VIAL IVP PRN ×2 (14:04→20:04)
[2020-05-11] MEDS: Morphine 4 MG/ML VIAL SLOW IVP PRN ×2 (00:17→04:55)
[2020-05-11] MEDS: Cefepime 2 GM in Sodium Chloride 0.9% 100 ML IVPB SCH ×3 (00:18→23:10)
[2020-05-11] MEDS: Ketorolac Tromethamine 30 MG/ML VIAL IVP PRN ×4 (03:24→23:15)
[2020-05-11] MEDS: metroNIDAZOLE 500 MG in Premix Bag 1 BAG IVPB SCH ×3 (04:56→21:32)
[2020-05-11] MEDS: Acetaminophen 325 MG TAB PO PRN ×3 (05:02→23:15)
[2020-05-11 05:26] LABS: #Lymphocytes 1.4 thou/uL (1.20-3.40); #Monocytes 0.5 thou/uL (0.11-0.59); #Neutrophils 4.3 thou/uL (1.40-6.50); %Basophils 0.6 % (0.0-1.0); %Eosinophils 0.6 % (0.0-10.0); %Lymphocytes 22.5 % (21.0-51.0); %Monocytes 7.3 % (0.0-10.0); Hemoglobin 9.5 g/dL (12.0-16.0); Mean Corpuscular Hemoglobin 29.9 pg (27.0-31.0); Mean Corpuscular Volume 90.6 fL (78.0-98.0); Mean Platelet Volume 7.3 fL (7.4-10.4); Platelet Count 247 thou/uL (130-400); RBC Distribution Width 12.5 % (11.5-14.5); Red Blood Cell (RBC) Count 3.16 mill/uL (4.20-5.40); White Blood Cell (WBC) Count 6.2 thou/uL (4.8-10.8)
[2020-05-11 05:46] LABS: Anion Gap 11 mmol/L (10-20); BUN (Urea Nitrogen) 9 mg/dL (9.8-20.1); Calc. Creatinine Clearance 80 mL/min (70-130); Calcium 7.5 mg/dL (7.8-10.44); Carbon Dioxide 20 mmol/L (23-31); Chloride 111 mmol/L (98-107); Estimated GFR-MDRD 65; Glucose 100 mg/dL (80-115); Potassium 3.3 mmol/L (3.5-5.1); Sodium 139 mmol/L (136-145)
[2020-05-11] MEDS: Mometasone 200 MCG/Formoterol 5 MCG 120 PUFF INHALER INH SCH ×2 (06:54→18:53)
[2020-05-11] MEDS: Ondansetron PF 4 MG/2 ML Vial IVP PRN ×2 (09:39→13:47)
[2020-05-11] MEDS: Enoxaparin Sodium 40 MG/0.4 ML SYRINGE SC SCH (09:39)
[2020-05-11] MEDS: Sodium Chloride 0.9% 1,000 ML IV SCH ×2 (10:09→13:51)
--- NOTE | 2020-05-11 11:31 | PDOC.FMACP ---
Advance Care Planning - Problem (1) Palliative care encounter Status: Acute Code(s): Z51.5 - ENCOUNTER FOR PALLIATIVE CARE (2) BRIANNA (acute kidney injury) Status: Acute Code(s): N17.9 - ACUTE KIDNEY FAILURE, UNSPECIFIED (3) Acute colitis Status: Acute Code(s): K52.9 - NONINFECTIVE GASTROENTERITIS AND COLITIS, UNSPECIFIED (4) Colitis Status: Acute Code(s): K52.9 - NONINFECTIVE GASTROENTERITIS AND COLITIS, UNSPECIFIED (5) Hypertension Status: Chronic Code(s): I10 - ESSENTIAL (PRIMARY) HYPERTENSION Qualifiers: Hypertension type: essential hypertension Qualified Code(s): I10 - Essential (primary) hypertension - Note Participants: patient, palliative care Summary: Palliative Care revisited Advanced Care Planning, opportunity to decline. The diagnosis, prognosis and goals of care were discussed. Appropriate forms and documentation to accomplish the goals of care were discussed. All questions were answered. Reviewed Directives in medical record and patient confirmed as correct and remain her wishes. The Palliative Care Team will assist with completion of any outstanding forms as identified. Please also refer to Palliative Care notes in note section. Time Spent (mins): 15
[2020-05-11] MEDS ORDERED: Ondansetron PF 4 MG/2 ML Vial IVP PRN (15:06)
[2020-05-11] MEDS: Mag-Al 1200 mg/1200 mg/30 ML UDCUP PO PRN ×2 (15:28→21:31)
--- NOTE | 2020-05-11 16:13 | PDOC.HOSPP ---
- Subjective Encounter Date: 05/11/20 Encounter Time: 16:10 Subjective: f/u for L-sided colitis presumed infectious on Cefepime/Flagyl. Overall improved with residual cramps and occasional nausea. - Objective Vital Signs & Weight: Vital Signs (12 hours) Temp Pulse Resp BP Pulse Ox 05/11/20 07:45 98.4 F 75 18 108/61 97 05/11/20 06:52 92 14 96 05/11/20 05:02 98.4 F 79 17 104/66 95 Weight Admit Weight 180 lb 4.8 oz Weight 179 lb 14.285 oz I&O: 05/10/20 05/11/20 05/12/20 06:59 06:59 06:59 Intake Total 1700 3380 Balance 1700 3380 Result Diagrams: 05/11/20 05:15 05/11/20 05:15 Additional Labs: Microbiology 05/10/20 05:15 Stool C. difficile GDH Antigen & Toxins - Final Laboratory Tests 05/09/20 05/09/20 05/09/20 11:40 11:40 14:02 WBC 14.3 H Neutrophils % 88.8 H BUN 22 H Creatinine 1.18 H Lactic Acid 3.0 H Lipase 05/09/20 05/09/20 18:03 18:03 WBC Neutrophils % BUN Creatinine Lactic Acid 3.2 H Lipase 26 Hospitalist ROS - Medication Medications: Active Medications Generic Name Dose Route Start Last Admin Trade Name Freq PRN Reason Stop Dose Admin Acetaminophen 650 mg 05/09/20 16:29 05/11/20 11:53 Tylenol PO 650 mg Q4H PRN Administration Headache/Fever/Mild Pain (1-3) Al Hydroxide/Mg Hydroxide 30 ml 05/11/20 15:07 05/11/20 15:28 Maalox PO 30 ml Q4H PRN Administration Heartburn or Indigestion Enoxaparin Sodium 40 mg 05/10/20 09:00 05/11/20 09:39 Lovenox SC 40 mg 0900 ABBE Administration Sodium Chloride 1,000 mls @ 100 mls/hr 05/09/20 16:30 05/11/20 13:51 Normal Saline 0.9% IV Not Given .Q10H ABBE Cefepime HCl 2 gm/ Sodium 100 mls @ 200 mls/hr 05/09/20 23:59 05/11/20 11:53 Chloride IVPB 100 mls 1200,2359 ABBE Administration Metronidazole 500 mg/ Device 100 mls @ 100 mls/hr 05/09/20 22:00 05/11/20 13: 49 IVPB 100 mls Q8HR ABBE Administration Ketorolac Tromethamine 30 mg 05/10/20 13:46 05/11/20 15:34 Toradol IVP 05/15/20 13:47 30 mg Q6H PRN Administration Moderate Pain (4-6) Mometasone Furoate/Formoterol Fumar 1 puff 05/09/20 18:30 05/11/20 06:54 Dulera 200 Mcg/5 Mcg Inhaler INH 1 puff BID-RT ABBE Administration Morphine Sulfate 4 mg 05/10/20 08:31 05/11/20 04:55 Morphine SLOW IVP 4 mg Q4H PRN Administration Moderate to Severe Pain (6-10) - Exam General Appearance: NAD, awake alert Eye: PERRL, anicteric sclera ENT: normocephalic atraumatic, no oropharyngeal lesions Neck: supple, symmetric, no JVD, no thyromegaly, no lymphadenopathy Heart: RRR, no gallops, no rubs, normal peripheral pulses Heart - other findings: S1, S2 Respiratory: CTAB, no wheezes, no rales, no ronchi, normal chest expansion, no tachypnea Gastrointestinal: soft, non-distended, normal bowel sounds, no palpable masses Gastrointestinal - other findings: minimal TTP LLQ Extremities: no cyanosis, no clubbing Skin: normal turgor, no lesions Neurological: cranial nerve grossly intact, no new deficit Musculoskeletal: normal tone, normal strength, no muscle wasting Psychiatric: normal affect, A&O x 3 Hosp A/P (1) Acute colitis Code(s): K52.9 - NONINFECTIVE GASTROENTERITIS AND COLITIS, UNSPECIFIED Status : Acute Plan: Continue Cefepime/Flagyl another 24h then de-escalate coverage (2) Acute left lower quadrant pain Code(s): R10.32 - LEFT LOWER QUADRANT PAIN Status: Acute (3) BRIANNA (acute kidney injury) Code(s): N17.9 - ACUTE KIDNEY FAILURE, UNSPECIFIED Status: Acute Plan: Resolving, saline lock IVF (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
[2020-05-12] MEDS ORDERED: Promethazine HCl 25 MG/ML VIAL IM/IV SCH (00:45)
[2020-05-12] MEDS: Mag-Al 1200 mg/1200 mg/30 ML UDCUP PO PRN (01:01)
[2020-05-12] MEDS: Morphine 4 MG/ML VIAL SLOW IVP PRN (01:15)
[2020-05-12] MEDS: metroNIDAZOLE 500 MG in Premix Bag 1 BAG IVPB SCH (05:59)
[2020-05-12 06:26] LABS: #Eosinphils 0.1 thou/uL (0.0-0.7); #Lymphocytes 1.3 thou/uL (1.20-3.40); #Monocytes 0.3 thou/uL (0.11-0.59); #Neutrophils 4.1 thou/uL (1.40-6.50); %Basophils 0.5 % (0.0-1.0); %Eosinophils 1.1 % (0.0-10.0); %Lymphocytes 21.7 % (21.0-51.0); %Monocytes 5.1 % (0.0-10.0); %Neutrophils 71.6 % (42.0-75.0); Hemoglobin 9.4 g/dL (12.0-16.0); Mean Corpuscular Hemoglobin 29.6 pg (27.0-31.0); Mean Corpuscular Volume 89.7 fL (78.0-98.0); Mean Platelet Volume 7.4 fL (7.4-10.4); Platelet Count 261 thou/uL (130-400); RBC Distribution Width 12.2 % (11.5-14.5); Red Blood Cell (RBC) Count 3.18 mill/uL (4.20-5.40); White Blood Cell (WBC) Count 5.7 thou/uL (4.8-10.8)
[2020-05-12] MEDS ORDERED: Promethazine HCl 25 MG/ML VIAL SLOW IVP SCH (06:45)
[2020-05-12 06:47] LABS: Anion Gap 10 mmol/L (10-20); BUN (Urea Nitrogen) 8 mg/dL (9.8-20.1); Calc. Creatinine Clearance 78 mL/min (70-130); Calcium 8.1 mg/dL (7.8-10.44); Carbon Dioxide 25 mmol/L (23-31); Chloride 111 mmol/L (98-107); Estimated GFR-MDRD 64; Glucose 92 mg/dL (80-115); Potassium 3.2 mmol/L (3.5-5.1); Sodium 143 mmol/L (136-145)
[2020-05-12] MEDS: Mometasone 200 MCG/Formoterol 5 MCG 120 PUFF INHALER INH SCH (07:47)
[2020-05-12 08:07] VITALS: BP 117/68; TEMP 98.5
[2020-05-12] MEDS: Enoxaparin Sodium 40 MG/0.4 ML SYRINGE SC SCH (08:36)
[2020-05-12] MEDS ORDERED: Potassium Chloride 20 MEQ TAB PO SCH (09:30)
--- NOTE | 2020-05-12 10:29 | DIS ---
DATE OF ADMISSION: 05/09/2020 DATE OF DISCHARGE: 05/12/2020 DISCHARGE DIAGNOSES: 1. Acute colitis, presumed infectious, resolving. 2. Acute left lower quadrant abdominal pain, resolving. 3. Acute kidney injury, resolved. 4. Eosinophilic asthma, chronic, stable. 5. Hypertension, stable. 6. Hypokalemia. CONSULTATIONS: None. PERTINENT LABORATORY AND X-RAY FINDINGS: Potassium ranged between 3.2 to 3.9, carbon dioxide level ranged between 19 to 26. Lactic acid level ranged between 3.0 to 3.2. LFTs within normal limits. Lipase 26. CBC showed a white blood cell count ranging between 5.7 to 14.5, hemoglobin ranged between 9.4 to 12.4. C difficile antigen and toxin dated 05/10/2020 negative. Portable chest x-ray dated 05/09/2020, showed no acute cardiopulmonary process. CT of the abdomen and pelvis dated 05/09/2020 showed long segment mucosal thickening and pericolonic fat stranding involving the left hemicolon. Minimal diverticulosis without definite diverticulitis. HOSPITAL COURSE: The patient was admitted to the medical floor after initially presenting with left lower quadrant abdominal pain and fever. The patient underwent initial evaluation including CT imaging of the abdomen and pelvis showing evidence of left hemicolon inflammatory process, presumed infectious. The patient was initiated on IV cefepime and Flagyl and monitored for clinical response. The patient rapidly improved clinically with antibiotic therapy and IV fluid supplementation. C difficile antigen and toxin were assessed and negative as stated previously. The patient continued to receive IV antibiotic therapy for approximately 72 hours with normalization of white blood cell count and remaining afebrile throughout the hospital course. Overall, the patient did remain clinically stable, tolerating clear liquids, advancing to full liquids without complication. I have examined the patient at the time of discharge and discussed followup instructions. The patient verbalizes understanding and in agreement and ready for discharge on 05/12/2020. DISCHARGE MEDICATIONS: 1. Omnicef 300 mg p.o. b.i.d. x5 days. 2. Florastor 250 mg p.o. daily. 3. K-Dur 40 mEq p.o. daily x3 days. 4. Symbicort 160/4.5 two puffs inhaled b.i.d. 5. Calcium carbonate one tablet p.o. daily. 6. Vitamin D3 of 2000 units p.o. at bedtime. 7. Lexapro 10 mg p.o. daily. 8. Nexium 40 mg p.o. daily. 9. Xopenex HFA one to two puffs inhaled q.4 hours p.r.n. 10. Olmesartan 20 mg p.o. daily. 11. Restasis one drop to each eye b.i.d. 12. Ambien 10 mg p.o. at bedtime. FOLLOWUP: The patient will follow up with her primary care provider, Dr. Fred Valerio. The patient will follow up to follow up with Dr. Charissa Dougherty with [facility] and to call our office for appointment, time, and date. CONDITION ON DISCHARGE: Stable. ACTIVITY: Ad-hardy. DIET: Heart healthy. SPECIAL INSTRUCTIONS: The patient to undergo colonoscopy approximately 2 to 3 weeks after discharge. CODE STATUS: Full. DISPOSITION: Home on 05/12/2020. TIME SPENT: Total time preparing and coordinating discharge, 31 minutes. Job ID: [id number]
[2020-05-12] MEDS: Cefepime 2 GM in Sodium Chloride 0.9% 100 ML IVPB SCH (11:28)
[2020-05-12] MEDS ORDERED: Zolpidem Tartrate 5 MG TAB PO SCH (21:00)
--- NOTE | 2020-05-13 15:44 | EKG ---
Test Reason : ABD PAIN Blood Pressure : / mmHG Vent. Rate : 060 BPM Atrial Rate : 060 BPM P-R Int : 186 ms QRS Dur : 086 ms QT Int : 436 ms P-R-T Axes : 000 038 057 degrees QTc Int : 436 ms Normal sinus rhythm Septal infarct , age undetermined Abnormal ECG Confirmed by ARELI AYERS DO ([id number]), video effects editor AMAURY TAI ([id number]) on 05/13/2020 3:43:28 PM Referred By: Kaz Sr Confirmed By:ARELI AYERS DO
== END 2020-05-12 12:38 | disposition home or self-care (01) | DRG 392 ==
LOC: ERS 11:13 → T4-A 15:16
PROVIDERS: ADMIT Family Medicine; ATTEND Family Medicine
DX: A09 Infectious gastroenteritis and colitis, unspecified (principal); N17.9 Acute kidney failure, unspecified; J82 Pulmonary eosinophilia, not elsewhere classified; I10 Essential (primary) hypertension; G62.9 Polyneuropathy, unspecified; F41.9 Anxiety disorder, unspecified; E86.0 Dehydration; E87.6 Hypokalemia; Z88.1 Allergy status to other antibiotic agents; Z90.49 Acquired absence of other specified parts of digestive tract; Z98.890 Other specified postprocedural states; Z88.0 Allergy status to penicillin
CPT/HCPCS: 36415; 36600; 71045; 74177; 80048; 80053; 83605; 83690; 84484; 85025; 87324; 87449; 87635; 93005; 94640; 96361; 96365; 96367; 96375; 96376; J0692; J1650; J1885; J2270; J2405; J2550; J3490; J7050; J7620; Q9967; U0003

== ENCOUNTER 2021-01-23 07:34 | Outpatient (CLI) | payer MEDICARE ==
[2021-01-23] MEDS ORDERED: Magnevist 469MG/ML 20 ML VIAL ONE (09:08)
== END 2021-01-23 07:35 | disposition home or self-care (01) ==
LOC: BICMRI 07:34
PROVIDERS: ATTEND Nurse Practitioner Family
DX: M48.062 Spinal stenosis, lumbar region with neurogenic claudication (principal); M47.816 Spondylosis without myelopathy or radiculopathy, lumbar region; Z98.890 Other specified postprocedural states
CPT/HCPCS: 72158; A9579

== ENCOUNTER 2021-05-03 10:05 | Outpatient (CLI) | payer MEDICARE ==
[2021-05-03 11:35] LABS: #Basophils 0.1 10x3/uL (0.0-0.2); #Eosinphils 0.1 10x3/uL (0.0-0.5); #Monocytes 0.4 10x3/uL (0.0-1.1); #Neutrophils 3.3 10x3/uL (1.5-8.4); %Basophils 1.4 % (0.0-2.0); %Eosinophils 1.6 % (0.0-6.0); %Lymphocytes 30.8 % (18.0-47.0); %Monocytes 7.3 % (0.0-10.0); %Neutrophils 58.2 % (40.0-75.0); Hemoglobin 11.9 g/dL (12.0-15.5); Mean Corpuscular HGB CONC 32.2 g/dL (32.0-36.0); Mean Corpuscular Hemoglobin 28.3 pg (27.0-33.0); Mean Corpuscular Volume 87.6 fl (81.6-98.3); Mean Platelet Volume 9.3 fl (7.4-10.4); Platelet Count 291 10x3/uL (150-450); RBC Distribution Width 13.7 % (11.5-14.5); Red Blood Cell (RBC) Count 4.21 10x6/uL (3.90-5.03); White Blood Cell (WBC) Count 5.7 10x3/uL (3.5-10.5)
[2021-05-03 11:59] LABS: INR-International Normal Ratio 0.9; Prothrombin Time 10.5 sec (9.5-12.1)
[2021-05-03 12:06] LABS: Anion Gap 14 mmol/L (10-20); BUN (Urea Nitrogen) 18 mg/dL (9.8-20.1); Calc. Creatinine Clearance 0 mL/min (70-130); Calcium 10.2 mg/dL (7.8-10.44); Carbon Dioxide 27 mmol/L (23-31); Chloride 104 mmol/L (98-107); Glucose 89 mg/dL (80-115); Potassium 4.4 mmol/L (3.5-5.1); Sodium 141 mmol/L (136-145)
[2021-05-03 23:40] LABS: SARS-CoV-2 PCR by NAA Not Detected (NotDetected)
== END 2021-05-03 10:06 | disposition home or self-care (01) ==
LOC: LABBT 10:05
PROVIDERS: ATTEND Orthopaedic Surgery
DX: Z01.818 Encounter for other preprocedural examination (principal); M17.11 Unilateral primary osteoarthritis, right knee; Z20.822 Contact with and (suspected) exposure to COVID-19
CPT/HCPCS: 80048; 85025; 85610; 87081; 93005; U0003; U0005; 93010

== ENCOUNTER 2021-06-15 07:27 | Outpatient (CLI) | payer MEDICARE ==
[2021-06-15 09:42] LABS: Hemoglobin 12.1 g/dL (12.0-15.5); Mean Corpuscular HGB CONC 31.7 g/dL (32.0-36.0); Mean Corpuscular Hemoglobin 28.6 pg (27.0-33.0); Mean Corpuscular Volume 90.3 fl (81.6-98.3); Mean Platelet Volume 10.1 fl (7.4-10.4); Platelet Count 313 10x3/uL (150-450); Red Blood Cell (RBC) Count 4.23 10x6/uL (3.90-5.03)
[2021-06-15 09:44] LABS: Anion Gap 14 mmol/L (10-20); BUN (Urea Nitrogen) 24 mg/dL (9.8-20.1); Calc. Creatinine Clearance 0 mL/min (70-130); Calcium 10.1 mg/dL (7.8-10.44); Carbon Dioxide 23 mmol/L (23-31); Chloride 104 mmol/L (98-107); Glucose 83 mg/dL (80-115); Potassium 4.4 mmol/L (3.5-5.1); Sodium 137 mmol/L (136-145)
[2021-06-16 18:41] LABS: SARS-CoV-2 PCR by NAA Not Detected (NotDetected)
== END 2021-06-15 07:28 | disposition home or self-care (01) ==
LOC: LABBT 07:27
PROVIDERS: ATTEND Orthopaedic Surgery
DX: Z01.812 Encounter for preprocedural laboratory examination (principal); M17.11 Unilateral primary osteoarthritis, right knee; Z20.822 Contact with and (suspected) exposure to COVID-19
CPT/HCPCS: 80048; 85027; 87081; U0003; U0005

== ENCOUNTER 2021-06-19 07:00 | Day surgery (SDC) | payer MEDICARE ==
[2021-05-07 12:20] VITALS: BMI 27.3
[~2021-06-19 07:00] MED LIST changes: +Bupivacaine HCl 0.5%/Epinephrine 1:200,000/PF 30 ml Vial ONE; +Clindamycin/D5W 600 mg/50 ml Premix Bag ONE; +Dexamethasone 20 MG/5 ML VIAL ONE; +Fentanyl 100 MCG/2 ML VIAL ONE; -Iopamidol-370 76% 500 ML 1 ML ONE; +Lidocaine 1% (PF) 30 ML VIAL ONE; +Lidocaine 1% PF 5 ML VIAL ONE; +Midazolam HCl 2 mg/2 ml Vial ONE; +Ondansetron PF 4 MG/2 ML Vial ONE; +PHENYLEPHRINE-NS 100 MCG/ML 10 ML SYRINGE ONE; +PROPOFOL 200 MG/20 ML VIAL ONE; +Ropivacaine 2% HCl/PF (20 MG/10 ML VIAL) ONE; +Sodium Chloride 0.9% 100 ML ONE; +Tranexamic Acid 1,000 MG/10 ML VIAL ONE; +Vancomycin 1 GM/200 ML BAG ONE; +ePHEDrine 50 MG/ML VIAL ONE
[2021-06-19] MEDS ORDERED: EPINEPHrine 1 MG/ML AMP ONE (07:23)
[2021-06-19] MEDS ORDERED: Bupivacaine 0.25% HCL 30 ML VIAL ONE (07:23)
[2021-06-19] MEDS ORDERED: Aztreonam 1 GM in Sodium Chloride 0.9% 100 ML IVPB SCH (07:30)
[2021-06-19] MEDS ORDERED: HYDROcodone/Acetaminophen 10/325 mg Tablet PO PRN ×4 (08:45→09:25)
[2021-06-19] MEDS ORDERED: Promethazine HCl 25 MG/ML VIAL IM PRN ×3 (08:45→09:25)
[2021-06-19] MEDS ORDERED: Zolpidem Tartrate 5 MG TAB PO PRN ×2 (08:45→09:25)
[2021-06-19] MEDS ORDERED: Ropivacaine 0.2% 550 ML 550 ML NERVE BLCK SCH (08:45)
[2021-06-19] MEDS ORDERED: Ketorolac Tromethamine 30 MG/ML VIAL IVP PRN (08:45)
[2021-06-19] MEDS ORDERED: traMADol HCl 50 MG TAB PO PRN ×2 (08:45)
[2021-06-19] MEDS ORDERED: Ondansetron PF 4 MG/2 ML Vial IVP PRN ×2 (08:45→09:25)
[2021-06-19] MEDS ORDERED: Ondansetron HCl/PF 4 MG/2 ML Vial IVP PRN (09:16)
[2021-06-19] MEDS ORDERED: Promethazine HCl 25 MG/ML VIAL IVPB PRN (09:16)
[2021-06-19] MEDS ORDERED: Fentanyl 100 MCG/2 ML VIAL SLOW IVP PRN ×2 (09:25)
[2021-06-19] MEDS ORDERED: Acetaminophen 325 MG TAB PO PRN (09:25)
[2021-06-19] MEDS ORDERED: diphenhydrAMINE 25 MG CAP PO PRN (09:25)
[2021-06-19] MEDS ORDERED: Sodium Chloride 0.9% 1,000 ML IV SCH (09:25)
[2021-06-19] MEDS ORDERED: Aspirin 81 mg Enteric Coated Tablet PO SCH ×2 (09:45→21:00)
[2021-06-19] MEDS ORDERED: Fentanyl 100 MCG/2 ML VIAL ONE (09:54)
[2021-06-19] MEDS ORDERED: Morphine 2 MG/ML VIAL ONE (11:15)
[2021-06-19] MEDS ORDERED: HYDROcodone/Acetaminophen 5/325 mg Tablet ONE (11:42)
[2021-06-19] MEDS ORDERED: Clindamycin/D5W 900 MG in Premix Bag 1 BAG IVPB SCH (14:00)
[2021-06-19] MEDS ORDERED: Vancomycin 1 GM in Premix Bag 1 BAG IVPB SCH (20:00)
[2021-06-20] MEDS ORDERED: Ferrous Gluconate 324 MG TAB PO SCH (08:00)
[2021-06-20] MEDS ORDERED: Multivitamin W/ Minerals 1 TAB PO SCH (09:00)
[2021-06-20] MEDS ORDERED: Senokot S 8.6-50 MG TAB PO SCH (09:00)
== END 2021-06-19 13:08 | disposition home or self-care (01) ==
LOC: SDC/OP 07:00 → SURG A 07:09 → EDSTATUS 10:00 → UNDODISIN 11:55 → SDC/OP 13:08
PROVIDERS: ATTEND Orthopaedic Surgery
PROC: 0SRC0J9 Replacement of Right Knee Joint with Synthetic Substitute, Cemented, Open Approach (ICD-10-PCS; principal; 2021-06-19)
PROC: 3E0T3BZ Introduction of Anesthetic Agent into Peripheral Nerves and Plexi, Percutaneous Approach (ICD-10-PCS; 2021-06-19)
PROC: 3E0T3BZ Introduction of Anesthetic Agent into Peripheral Nerves and Plexi, Percutaneous Approach (ICD-10-PCS; 2021-06-19)
DX: M17.11 Unilateral primary osteoarthritis, right knee (principal); Z79.899 Other long term (current) drug therapy; Z88.0 Allergy status to penicillin; Z88.1 Allergy status to other antibiotic agents; Z88.8 Allergy status to other drugs, medicaments and biological substances; Z90.49 Acquired absence of other specified parts of digestive tract; Z98.1 Arthrodesis status
CPT/HCPCS: A4306; C1713; C1776; J0171; J2001; J2250; J2270; J2795; J3010; J3370; J3490; S0020

== ENCOUNTER 2022-05-21 14:59 | Outpatient (CLI) | payer MEDICARE | END 2022-05-21 15:00 | disposition home or self-care (01) | LOC: CTENTCT 14:59 | PROVIDERS: ATTEND Otolaryngology Plastic Surgery within the Head & Neck | DX: J01.20 Acute ethmoidal sinusitis, unspecified (principal); J32.8 Other chronic sinusitis | CPT/HCPCS: 70486; 87070; 87205 ==

== ENCOUNTER 2023-06-23 12:52 | Outpatient (CLI) | payer MEDICARE | END 2023-06-23 12:53 | disposition home or self-care (01) | LOC: SCSMRI 12:52 | PROVIDERS: ATTEND Anesthesiology Pain Medicine | DX: M47.26 Other spondylosis with radiculopathy, lumbar region (principal); M48.061 Spinal stenosis, lumbar region without neurogenic claudication; Z98.890 Other specified postprocedural states | CPT/HCPCS: 72148 ==

== ENCOUNTER 2023-07-18 13:14 | Outpatient (CLI) | payer MEDICARE | END 2023-07-18 13:15 | disposition home or self-care (01) | LOC: BICCT 13:14 | PROVIDERS: ATTEND Neurological Surgery | DX: M47.26 Other spondylosis with radiculopathy, lumbar region (principal); M48.061 Spinal stenosis, lumbar region without neurogenic claudication; N20.0 Calculus of kidney; Z98.890 Other specified postprocedural states | CPT/HCPCS: 72131 ==

== ENCOUNTER 2023-08-14 10:24 | Outpatient (CLI) | payer MEDICARE ==
[2023-08-14 11:24] LABS: Hematocrit 37.8 % (34.9-44.5); Hemoglobin 11.9 g/dL (12.0-15.5); Mean Corpuscular HGB CONC 31.5 g/dL (32.0-36.0); Mean Corpuscular Hemoglobin 28.1 pg (27.0-33.0); Mean Corpuscular Volume 89.2 fl (81.6-98.3); Mean Platelet Volume 9.5 fl (7.4-10.4); Platelet Count 325 10x3/uL (150-450); RBC Distribution Width 13.4 % (11.5-14.5); Red Blood Cell (RBC) Count 4.24 10x6/uL (3.90-5.03); White Blood Cell (WBC) Count 6.4 10x3/uL (3.5-10.5)
[2023-08-14 12:10] LABS: Anion Gap 15 mmol/L (10-20); BUN (Urea Nitrogen) 16 mg/dL (9.8-20.1); Calc. Creatinine Clearance 0 mL/min (70-130); Calcium 9.3 mg/dL (7.8-10.44); Carbon Dioxide 21 mmol/L (23-31); Chloride 108 mmol/L (98-107); Estimated GFR 59; Glucose 98 mg/dL (83-110); Sodium 140 mmol/L (136-145)
== END 2023-08-14 10:25 | disposition home or self-care (01) ==
LOC: LABBT 10:24
PROVIDERS: ATTEND Neurological Surgery
DX: Z01.818 Encounter for other preprocedural examination (principal); M54.16 Radiculopathy, lumbar region
CPT/HCPCS: 80048; 85027; 93005; 93010

== ENCOUNTER 2023-08-14 10:30 | Inpatient (IN) | payer MEDICARE ==
[2023-08-14 11:07] VITALS: BMI 26.9
[2023-08-20] MEDS ORDERED: Lidocaine 1% MPF 2 ML VIAL ONE (08:40)
[2023-08-20] MEDS ORDERED: PROPOFOL 20 ML ONE (10:21)
[2023-08-20] MEDS ORDERED: Rocuronium Bromide 10 MG/ML (10ML VIAL) ONE ×2 (10:21→11:19)
[2023-08-20] MEDS ORDERED: Lidocaine 1% PF 5 ML VIAL ONE ×2 (10:21→11:19)
[2023-08-20] MEDS ORDERED: Thrombin 5000 UNITS/5 ML VIAL ONE (10:29)
[2023-08-20] MEDS ORDERED: Bupivacaine PF 0.5% 30 ML VIAL ONE (10:29)
[2023-08-20] MEDS ORDERED: EPINEPHrine 1 MG/ML VIAL ONE (10:29)
[2023-08-20] MEDS ORDERED: Vancomycin 1 GM/200 ML (FROZEN) BAG ONE (10:35)
[2023-08-20] MEDS ORDERED: Ondansetron PF 4 MG/2 ML Vial ONE (11:19)
[2023-08-20] MEDS ORDERED: Dexamethasone 20 MG/5 ML VIAL ONE (11:19)
[2023-08-20] MEDS ORDERED: Glycopyrrolate 0.2 MG/ML 5 ML SYRINGE ONE (11:19)
[2023-08-20] MEDS ORDERED: PROPOFOL 200 MG/20 ML VIAL ONE (11:19)
[2023-08-20] MEDS ORDERED: SUGAMMADEX SODIUM 200 MG/2 ML VIAL ONE (13:43)
[2023-08-20] MEDS ORDERED: Sevoflurane 250 ML INH ANEST BOTTLE ONE (13:52)
[2023-08-20] MEDS ORDERED: Mag-Al 1200 mg/1200 mg/30 ML UDCUP PO PRN (14:07)
[2023-08-20] MEDS ORDERED: Acetaminophen 325 MG TAB PO PRN (14:07)
[2023-08-20] MEDS ORDERED: Morphine 2 MG/ML VIAL SLOW IVP PRN (14:07)
[2023-08-20] MEDS ORDERED: Morphine 4 MG/ML VIAL SLOW IVP PRN (14:07)
[2023-08-20] MEDS ORDERED: Ondansetron PF 4 MG/2 ML Vial IVP PRN (14:07)
[2023-08-20] MEDS ORDERED: Albuterol 200 PUFF (6.7GM INHALER) INH PRN (14:08)
[2023-08-20] MEDS ORDERED: Fentanyl 250 MCG/5 ML VIAL ONE (14:21)
[2023-08-20] MEDS: Cholecalciferol 1,000 UNITS (25 MCG) TAB PO SCH (17:25)
[2023-08-20] MEDS: HYDROcodone/Acetaminophen 7.5/325 mg Tablet PO PRN ×2 (17:25→21:54)
[2023-08-20] MEDS: Clindamycin/D5W 900 MG in Premix 1 BAG IVPB SCH (17:29)
[2023-08-20] MEDS: Sodium Chloride 0.9% 1,000 ML IV SCH (18:36)
[2023-08-20] MEDS: Mometasone 200 MCG/Formoterol 5 MCG 120 PUFF INHALER INH SCH (19:34)
[2023-08-20] MEDS: Cyclobenzaprine 10 MG TAB PO PRN (19:43)
[2023-08-20] MEDS: Zolpidem Tartrate 5 MG TAB PO SCH (20:55)
[2023-08-20] MEDS: Pregabalin 50 MG CAP PO SCH (20:56)
[2023-08-20] MEDS: cycloSPORINE 0.05% Ophthalmic Droperette EA EYE SCH (21:55)
[2023-08-21] MEDS: HYDROcodone/Acetaminophen 7.5/325 mg Tablet PO PRN ×5 (01:49→21:28)
[2023-08-21] MEDS: Clindamycin/D5W 900 MG in Premix 1 BAG IVPB SCH (01:50)
[2023-08-21] MEDS: Sodium Chloride 0.9% 1,000 ML IV SCH ×2 (02:54→15:16)
[2023-08-21] MEDS: Mometasone 200 MCG/Formoterol 5 MCG 120 PUFF INHALER INH SCH ×2 (07:18→19:28)
[2023-08-21] MEDS: Losartan 25 MG TAB PO SCH (08:35)
[2023-08-21] MEDS: Escitalopram Oxalate 10 mg Tablet PO SCH (08:36)
[2023-08-21] MEDS: Pregabalin 50 MG CAP PO SCH ×2 (08:36→21:29)
[2023-08-21] MEDS: Calcium Carbonate 600 MG + Vit D TAB PO SCH (08:37)
[2023-08-21] MEDS: cycloSPORINE 0.05% Ophthalmic Droperette EA EYE SCH ×2 (08:37→21:27)
[2023-08-21] MEDS: Cyclobenzaprine 10 MG TAB PO PRN (17:06)
[2023-08-21] MEDS: Cholecalciferol 1,000 UNITS (25 MCG) TAB PO SCH (17:07)
[2023-08-21] MEDS: Zolpidem Tartrate 5 MG TAB PO SCH (21:28)
[2023-08-22] MEDS: Mometasone 200 MCG/Formoterol 5 MCG 120 PUFF INHALER INH SCH (07:33)
[2023-08-22] MEDS: Losartan 25 MG TAB PO SCH (08:19)
[2023-08-22] MEDS: HYDROcodone/Acetaminophen 7.5/325 mg Tablet PO PRN ×2 (08:20→13:10)
[2023-08-22] MEDS: Pregabalin 50 MG CAP PO SCH (08:26)
[2023-08-22] MEDS: Calcium Carbonate 600 MG + Vit D TAB PO SCH (08:26)
[2023-08-22] MEDS: Escitalopram Oxalate 10 mg Tablet PO SCH (08:26)
[2023-08-22] MEDS ORDERED: Estrogens, Conjugated 0.3 MG TAB PO SCH (09:00)
[2023-08-22 11:34] VITALS: BP 100/64; TEMP 97.1
[2023-08-22] MEDS: Sodium Chloride 0.9% 1,000 ML IV SCH (11:39)
== END 2023-08-22 14:41 | disposition home or self-care (01) | DRG 460 ==
LOC: SURG A 08-20 07:21 → INTOOBSV 08-20 07:21 → SURG A 08-20 15:36 → OBSVTOIN 08-21 15:42
PROVIDERS: ADMIT Neurological Surgery; ATTEND Neurological Surgery
PROC: 0SP304Z Removal of Internal Fixation Device from Lumbosacral Joint, Open Approach (ICD-10-PCS; principal; 2023-08-20)
PROC: 0SG0071 Fusion of Lumbar Vertebral Joint with Autologous Tissue Substitute, Posterior Approach, Posterior Column, Open Approach (ICD-10-PCS; 2023-08-20)
PROC: 01NB0ZZ Release Lumbar Nerve, Open Approach (ICD-10-PCS; 2023-08-20)
DX: M48.061 Spinal stenosis, lumbar region without neurogenic claudication (principal); M47.817 Spondylosis without myelopathy or radiculopathy, lumbosacral region; G89.4 Chronic pain syndrome; F41.9 Anxiety disorder, unspecified; M19.90 Unspecified osteoarthritis, unspecified site; I10 Essential (primary) hypertension; Z88.0 Allergy status to penicillin; Z88.1 Allergy status to other antibiotic agents; Z88.8 Allergy status to other drugs, medicaments and biological substances; Z79.899 Other long term (current) drug therapy
CPT/HCPCS: 94664; C1713; C1889; J0171; J1100; J2270; J2405; J2704; J3010; J3370-JW; J3490; S0020